=== PATIENT | male | born 1975 | race Hispanic/Latino ===

== ENCOUNTER 2019-07-14 23:33 | Emergency (ER) | payer SELFPAY ==
[2019-07-15] MEDS ORDERED: Ibuprofen 200 MG TAB ONE (00:33)
== END 2019-07-15 02:04 | disposition home or self-care (01) ==
LOC: ERS 23:33
DX: J11.1 Influenza due to unidentified influenza virus with other respiratory manifestations (principal)
CPT/HCPCS: 87804; 99283

== ENCOUNTER 2019-07-29 12:28 | Emergency (ER) | payer SELFPAY ==
[2019-07-29] MEDS ORDERED: Adacel (T-DAP) 0.5 ML SYRINGE ONE (14:09)
== END 2019-07-29 14:20 | disposition home or self-care (01) ==
LOC: ERS 12:28
DX: L03.113 Cellulitis of right upper limb (principal)
CPT/HCPCS: 90471; 90715